=== PATIENT | female | born 1955 | race Caucasian/White ===

== ENCOUNTER 2021-04-22 07:16 | Day surgery (SDC) | payer MEDICARE, BC ==
[2021-04-22] MEDS ORDERED: fentaNYL 100 MCG/2 ML SDV IV ONE (07:17)
[2021-04-22] MEDS ORDERED: Midazolam 1 MG/ML 2 ML SDV IV ONE (07:17)
[2021-04-22] MEDS ORDERED: Lactated Ringers 1,000 ML IV PRN (07:30)
[2021-04-22] MEDS ORDERED: Sodium Chloride 0.9% 10 ML Syringe FLUSH PRN (07:30)
[2021-04-22] MEDS ORDERED: acetaZOLAMIDE 500 MG Cap.ER PO ONE (09:30)
[2021-04-22 12:22] VITALS: BP 141/66; PULSE 74
--- NOTE | 2021-04-23 07:44 | OR ---
DATE OF OPERATION: 04/22/2021 SURGEON: Janis Kaur MD PREOPERATIVE DIAGNOSIS: Visually significant cataract, right eye. POSTOPERATIVE DIAGNOSIS: Visually significant cataract, right eye. PROCEDURES PERFORMED: Phacoemulsification with intraocular lens placement, right eye. ASSISTANTS: None. ANESTHESIA: Local with sedation. COMPLICATIONS: None. BLOOD LOSS: None. IMPLANTS: An Rojas ACU0T0, 16.5 diopter lens, serial number [id number] implanted. CDE: 10.81. DESCRIPTION OF PROCEDURE: After risks and benefits were reviewed with the patient, consent was obtained in the preoperative area, and the operative eye was marked with a surgical pen. In the preoperative area, a pledget was used to dilate the pupil consisting of a mixture of phenylephrine 10%, cyclopentolate 2%, moxifloxacin 0.5%, and bupivacaine 0.75%. The patient was taken to the operating room, where a time-out was performed, and the patient was placed under monitored anesthesia care. Topical tetracaine was used for anesthesia. The operative eye was prepped and draped for ophthalmic surgery, and the microscope was brought into position and focused. A paracentesis incision was made, followed by injection of preservative-free 1% lidocaine into the anterior chamber, followed by injection of Viscoat into the anterior chamber. A microkeratome blade was used to make a corneal limbal incision temporally. A cystotome was used to make the beginning of the capsulorrhexis, which was carried around 360 degrees in a curvilinear fashion using Utrata forceps. A Dunlap cannula with BSS was used to hydrodissect and hydrodelineate the nucleus. The nucleus was removed in a divide and conquer manner using phacoemulsification. Irrigation and aspiration were used to remove the remaining cortical material. Provisc was used to inflate the capsular bag, and a pre-loaded Rojas ACU0T0, 16.5 diopter lens, serial number [id number] was injected into the capsular bag. A Sinskey hook was used to position and center the lens. Next, irrigation and aspiration was used to remove any remaining viscoelastic and cortical material from the anterior chamber. BSS on a cannula was used to inflate the anterior chamber and hydrate the wound. The wound was checked and found to be watertight. 1 mg of Moxifloxacin was injected into the anterior chamber. Drapes were removed and the eye was cleaned. A drop of brimonidine 0.2% and a drop of TobraDex was placed. The eye was shielded, and the patient was taken to the recovery room in stable condition. /[id number] NI/GAMALIEL
== END 2021-04-22 10:30 | disposition home or self-care (01) ==
LOC: FB.SDS 07:16
PROVIDERS: ATTEND Ophthalmology
DX: H25.813 Combined forms of age-related cataract, bilateral (principal); H43.812 Vitreous degeneration, left eye; H35.033 Hypertensive retinopathy, bilateral; H04.123 Dry eye syndrome of bilateral lacrimal glands; I10 Essential (primary) hypertension; Z88.1 Allergy status to other antibiotic agents; Z88.8 Allergy status to other drugs, medicaments and biological substances; Z90.49 Acquired absence of other specified parts of digestive tract; Z98.890 Other specified postprocedural states
CPT/HCPCS: 00142-QZ; A9270-GY; J2250; J3010; J7120; V2632

== ENCOUNTER 2021-05-06 08:34 | Day surgery (SDC) | payer MEDICARE, BC ==
[~2021-05-06 08:34] MED LIST: Lactated Ringers 1,000 ML IV PRN; Sodium Chloride 0.9% 10 ML Syringe FLUSH PRN
[2021-05-06] MEDS ORDERED: fentaNYL 100 MCG/2 ML SDV IV ONE (08:35)
[2021-05-06] MEDS ORDERED: Midazolam 1 MG/ML 2 ML SDV IV ONE (08:35)
[2021-05-06] MEDS ORDERED: acetaZOLAMIDE 500 MG Cap.ER PO ONE (10:00)
[2021-05-06 10:56] VITALS: BP 151/78; PULSE 73
--- NOTE | 2021-05-06 11:36 | OR ---
DATE OF OPERATION: 05/06/2021 SURGEON: Janis Kaur MD PREOPERATIVE DIAGNOSIS: Visually significant cataract, left eye. POSTOPERATIVE DIAGNOSIS: Visually significant cataract, left eye. PROCEDURES PERFORMED: Phacoemulsification with intraocular lens placement, left eye. ASSISTANTS: None. ANESTHESIA: Local with sedation. COMPLICATIONS: None. BLOOD LOSS: None. IMPLANTS: Rojas ACU0T0, 19.5 diopter lens, serial number [id number] implanted. CDE: 3.05. DESCRIPTION OF PROCEDURE: After risks and benefits were reviewed with the patient, consent was obtained in the preoperative area, and the operative eye was marked with a surgical pen. In the preoperative area, a pledget was used to dilate the pupil consisting of a mixture of phenylephrine 10%, cyclopentolate 2%, moxifloxacin 0.5%, and bupivacaine 0.75%. The patient was taken to the operating room, where a time-out was performed, and the patient was placed under monitored anesthesia care. Topical tetracaine was used for anesthesia. The operative eye was prepped and draped for ophthalmic surgery, and the microscope was brought into position and focused. A paracentesis incision was made, followed by injection of preservative-free 1% lidocaine into the anterior chamber, followed by injection of Viscoat into the anterior chamber. A microkeratome blade was used to make a corneal limbal incision temporally. A cystotome was used to make the beginning of the capsulorrhexis, which was carried around 360 degrees in a curvilinear fashion using Utrata forceps. A Dunlap cannula with BSS was used to hydrodissect and hydrodelineate the nucleus. The nucleus was removed in a divide and conquer manner using phacoemulsification. Irrigation and aspiration were used to remove the remaining cortical material. Provisc was used to inflate the capsular bag, and a pre-loaded Rojas ACU0T0, 19.5 diopter lens, serial number [id number] was injected into the capsular bag. A Sinskey hook was used to position and center the lens. Next, irrigation and aspiration was used to remove any remaining viscoelastic and cortical material from the anterior chamber. BSS on a cannula was used to inflate the anterior chamber and hydrate the wound. The wound was checked and found to be watertight. 1 mg of Moxifloxacin was injected into the anterior chamber. Drapes were removed and the eye was cleaned. A drop of brimonidine 0.2% and a drop of TobraDex was placed. The eye was shielded, and the patient was taken to the recovery room in stable condition. /[id number] NI/GAMALIEL
== END 2021-05-06 11:08 | disposition home or self-care (01) ==
LOC: FB.SDS 08:34
PROVIDERS: ATTEND Ophthalmology
DX: H25.813 Combined forms of age-related cataract, bilateral (principal); H43.812 Vitreous degeneration, left eye; H35.033 Hypertensive retinopathy, bilateral; H04.123 Dry eye syndrome of bilateral lacrimal glands; I10 Essential (primary) hypertension; Z88.1 Allergy status to other antibiotic agents; Z88.8 Allergy status to other drugs, medicaments and biological substances; Z79.899 Other long term (current) drug therapy
CPT/HCPCS: 00142-QZ; A9270-GY; J2250; J3010; J7120; V2632

== ENCOUNTER 2022-04-02 10:50 | Inpatient (IN) | payer MEDICARE, BC ==
[2022-04-02] MEDS ORDERED: Polyethylene Glycol 3350 Powder 17 GM Packet PO PRN (12:14)
[2022-04-02] MEDS: Acetaminophen 500 MG Tab PO SCH ×2 (13:02→21:14)
[2022-04-02] MEDS: oxyCODONE 5 MG Tab PO PRN ×4 (13:12→22:20)
[2022-04-02] MEDS: Pantoprazole 40 MG Tab.CR PO SCH (16:17)
[2022-04-02] MEDS: Losartan 25 MG Tab PO SCH (21:14)
[2022-04-03] MEDS: oxyCODONE 5 MG Tab PO PRN ×5 (01:20→21:47)
[2022-04-03] MEDS: Levothyroxine 25 MCG Tab PO SCH (06:09)
[2022-04-03] MEDS: Acetaminophen 500 MG Tab PO SCH ×3 (06:10→21:47)
[2022-04-03] MEDS: Aspirin 81 MG Tab.Chew PO SCH ×2 (08:59→21:46)
[2022-04-03] MEDS: Calcium Carbonate 500 MG Tablet PO SCH (08:59)
[2022-04-03] MEDS: Chlorthalidone 25 MG Tab PO SCH (09:00)
[2022-04-03] MEDS: Losartan 25 MG Tab PO SCH ×2 (09:01→21:46)
[2022-04-03] MEDS: Multivitamin Tab PO SCH (09:05)
[2022-04-03] MEDS: Methocarbamol 500 MG Tab PO PRN (17:56)
[2022-04-04] MEDS: oxyCODONE 5 MG Tab PO PRN ×5 (01:10→22:46)
[2022-04-04] MEDS: Methocarbamol 500 MG Tab PO PRN ×2 (02:40→08:46)
[2022-04-04] MEDS: Levothyroxine 25 MCG Tab PO SCH (05:30)
[2022-04-04] MEDS: Acetaminophen 500 MG Tab PO SCH ×3 (05:30→21:04)
[2022-04-04] MEDS: Calcium Carbonate 500 MG Tablet PO SCH (08:42)
[2022-04-04] MEDS: Chlorthalidone 25 MG Tab PO SCH (08:42)
[2022-04-04] MEDS: Aspirin 81 MG Tab.Chew PO SCH ×2 (08:42→21:04)
[2022-04-04] MEDS: Multivitamin Tab PO SCH (08:43)
[2022-04-04] MEDS: Losartan 25 MG Tab PO SCH ×2 (08:43→21:04)
[2022-04-05] MEDS: oxyCODONE 5 MG Tab PO PRN ×4 (04:03→20:59)
[2022-04-05] MEDS: Levothyroxine 25 MCG Tab PO SCH (05:25)
[2022-04-05] MEDS: Acetaminophen 500 MG Tab PO SCH ×3 (06:34→21:01)
[2022-04-05] MEDS: Chlorthalidone 25 MG Tab PO SCH (08:14)
[2022-04-05] MEDS: Losartan 25 MG Tab PO SCH ×2 (08:14→20:45)
[2022-04-05] MEDS: Calcium Carbonate 500 MG Tablet PO SCH (08:14)
[2022-04-05] MEDS: Aspirin 81 MG Tab.Chew PO SCH ×2 (08:14→20:45)
[2022-04-05] MEDS: Multivitamin Tab PO SCH (08:15)
[2022-04-05] MEDS: Meloxicam 7.5 MG Tab PO SCH (08:24)
[2022-04-05] MEDS: Pantoprazole 40 MG Tab.CR PO SCH (18:59)
[2022-04-05] MEDS: Methocarbamol 500 MG Tab PO PRN (23:40)
[2022-04-06] MEDS: oxyCODONE 5 MG Tab PO PRN ×5 (01:43→21:47)
[2022-04-06] MEDS: Levothyroxine 25 MCG Tab PO SCH (05:44)
[2022-04-06] MEDS: Acetaminophen 500 MG Tab PO SCH ×3 (05:44→21:41)
[2022-04-06] MEDS: Methocarbamol 500 MG Tab PO PRN ×2 (06:00→12:14)
[2022-04-06] MEDS: Chlorthalidone 25 MG Tab PO SCH (08:48)
[2022-04-06] MEDS: Aspirin 81 MG Tab.Chew PO SCH ×2 (08:48→21:40)
[2022-04-06] MEDS: Calcium Carbonate 500 MG Tablet PO SCH (08:48)
[2022-04-06] MEDS: Multivitamin Tab PO SCH (08:49)
[2022-04-06] MEDS: Meloxicam 7.5 MG Tab PO SCH (08:51)
[2022-04-06] MEDS: Losartan 25 MG Tab PO SCH ×2 (09:01→21:43)
[2022-04-07] MEDS: oxyCODONE 5 MG Tab PO PRN ×4 (01:30→18:21)
[2022-04-07] MEDS: Levothyroxine 25 MCG Tab PO SCH (05:58)
[2022-04-07] MEDS: Acetaminophen 500 MG Tab PO SCH ×3 (05:59→21:35)
[2022-04-07] MEDS: Calcium Carbonate 500 MG Tablet PO SCH (08:17)
[2022-04-07] MEDS: Chlorthalidone 25 MG Tab PO SCH (08:18)
[2022-04-07] MEDS: Aspirin 81 MG Tab.Chew PO SCH ×2 (08:18→21:35)
[2022-04-07] MEDS: Losartan 25 MG Tab PO SCH ×2 (08:19→21:35)
[2022-04-07] MEDS: Meloxicam 7.5 MG Tab PO SCH (08:20)
[2022-04-07] MEDS: Multivitamin Tab PO SCH (08:20)
[2022-04-08] MEDS: oxyCODONE 5 MG Tab PO PRN ×4 (00:24→20:58)
[2022-04-08] MEDS: Acetaminophen 500 MG Tab PO SCH ×3 (06:53→21:09)
[2022-04-08] MEDS: Levothyroxine 25 MCG Tab PO SCH (06:53)
[2022-04-08] MEDS: Calcium Carbonate 500 MG Tablet PO SCH (09:10)
[2022-04-08] MEDS: Multivitamin Tab PO SCH (09:10)
[2022-04-08] MEDS: Aspirin 81 MG Tab.Chew PO SCH ×2 (09:10→21:07)
[2022-04-08] MEDS: Losartan 25 MG Tab PO SCH ×2 (09:11→21:02)
[2022-04-08] MEDS: Meloxicam 7.5 MG Tab PO SCH (09:13)
[2022-04-08] MEDS: Chlorthalidone 25 MG Tab PO SCH (14:23)
[2022-04-08] MEDS: Pantoprazole 40 MG Tab.CR PO SCH (16:06)
[2022-04-09] MEDS: Methocarbamol 500 MG Tab PO PRN ×2 (02:55→09:26)
[2022-04-09] MEDS: Levothyroxine 25 MCG Tab PO SCH (05:18)
[2022-04-09] MEDS: Acetaminophen 500 MG Tab PO SCH ×4 (05:20→21:50)
[2022-04-09] MEDS: oxyCODONE 5 MG Tab PO PRN ×3 (05:21→21:56)
[2022-04-09] MEDS: Aspirin 81 MG Tab.Chew PO SCH ×2 (09:26→21:45)
[2022-04-09] MEDS: Chlorthalidone 25 MG Tab PO SCH (09:27)
[2022-04-09] MEDS: Losartan 25 MG Tab PO SCH ×2 (09:27→21:52)
[2022-04-09] MEDS: Calcium Carbonate 500 MG Tablet PO SCH (09:32)
[2022-04-09] MEDS: Meloxicam 7.5 MG Tab PO SCH (11:00)
[2022-04-09] MEDS: Multivitamin Tab PO SCH (11:01)
[2022-04-09] MEDS ORDERED: Methocarbamol 500 MG Tab PO ONE (16:30)
[2022-04-09] MEDS: Methocarbamol 500 MG Tab PO SCH (21:52)
[2022-04-10] MEDS: oxyCODONE 5 MG Tab PO PRN (05:07)
[2022-04-10] MEDS: Acetaminophen 500 MG Tab PO SCH ×3 (05:08→22:49)
[2022-04-10] MEDS: Methocarbamol 500 MG Tab PO SCH ×3 (05:08→22:50)
[2022-04-10] MEDS: Levothyroxine 25 MCG Tab PO SCH (05:09)
[2022-04-10] MEDS: Aspirin 81 MG Tab.Chew PO SCH ×2 (08:21→20:05)
[2022-04-10] MEDS: Calcium Carbonate 500 MG Tablet PO SCH (08:21)
[2022-04-10] MEDS: Chlorthalidone 25 MG Tab PO SCH (08:22)
[2022-04-10] MEDS: Meloxicam 7.5 MG Tab PO SCH (08:24)
[2022-04-10] MEDS: Multivitamin Tab PO SCH (08:24)
[2022-04-10] MEDS: Losartan 25 MG Tab PO SCH ×2 (08:47→20:01)
[2022-04-11] MEDS: oxyCODONE 5 MG Tab PO PRN ×2 (01:47→15:27)
[2022-04-11] MEDS: Methocarbamol 500 MG Tab PO SCH ×2 (05:14→13:14)
[2022-04-11] MEDS: Levothyroxine 25 MCG Tab PO SCH (05:14)
[2022-04-11] MEDS: Acetaminophen 500 MG Tab PO SCH ×2 (05:15→13:14)
[2022-04-11 06:53] VITALS: BP 186/84; PULSE 80
[2022-04-11] MEDS: Chlorthalidone 25 MG Tab PO SCH (09:05)
[2022-04-11] MEDS: Calcium Carbonate 500 MG Tablet PO SCH (09:05)
[2022-04-11] MEDS: Aspirin 81 MG Tab.Chew PO SCH (09:05)
[2022-04-11] MEDS: Losartan 25 MG Tab PO SCH (09:07)
[2022-04-11] MEDS: Meloxicam 7.5 MG Tab PO SCH (09:08)
[2022-04-11] MEDS: Multivitamin Tab PO SCH (09:09)
[2022-04-11] MEDS ORDERED: Methocarbamol 500 MG Tab PO ONE (19:29)
== END 2022-04-11 19:30 | disposition home or self-care (01) | DRG 560 ==
LOC: FB.MS 11:34 → UNDOADMIN 11:34 → FB.MS 12:11
PROVIDERS: ADMIT Family Medicine; ATTEND Student in an Organized Health Care Education/Training Program
DX: Z47.1 Aftercare following joint replacement surgery (principal); Z68.42 Body mass index [BMI] 45.0-49.9, adult; I87.2 Venous insufficiency (chronic) (peripheral); K21.9 Gastro-esophageal reflux disease without esophagitis; I10 Essential (primary) hypertension; Z96.651 Presence of right artificial knee joint; I89.0 Lymphedema, not elsewhere classified; E03.9 Hypothyroidism, unspecified; G47.00 Insomnia, unspecified; E66.01 Morbid (severe) obesity due to excess calories; E78.5 Hyperlipidemia, unspecified; Z79.82 Long term (current) use of aspirin; Z79.899 Other long term (current) drug therapy; Z88.1 Allergy status to other antibiotic agents; Z88.8 Allergy status to other drugs, medicaments and biological substances; Z90.49 Acquired absence of other specified parts of digestive tract; Z98.49 Cataract extraction status, unspecified eye
CPT/HCPCS: 97110-GP; 97116-GP; 97140-GP; 97161-GP; 97166-GO; 97530-GO; 97530-GP; 97535-GO; A9270-GY

== ENCOUNTER 2022-06-04 09:23 | Inpatient (IN) | payer MEDICARE, BC ==
[2022-06-04] MEDS ORDERED: Bisacodyl 5 MG Tab PO PRN (11:30)
[2022-06-04] MEDS: oxyCODONE 5 MG Tab PO PRN ×3 (13:13→22:37)
[2022-06-04] MEDS: Acetaminophen 500 MG Tab PO SCH ×2 (14:34→22:14)
[2022-06-04] MEDS: Losartan 25 MG Tab PO SCH (22:13)
[2022-06-05] MEDS: oxyCODONE 5 MG Tab PO PRN ×6 (03:00→20:53)
[2022-06-05] MEDS: Methocarbamol 500 MG Tab PO PRN ×4 (03:00→23:15)
[2022-06-05] MEDS: Acetaminophen 500 MG Tab PO SCH ×3 (06:04→21:00)
[2022-06-05] MEDS: Pantoprazole 40 MG Tab.CR PO SCH (06:04)
[2022-06-05] MEDS: Levothyroxine 25 MCG Tab PO SCH (06:05)
[2022-06-05] MEDS: Losartan 25 MG Tab PO SCH ×2 (08:46→20:57)
[2022-06-05] MEDS: Aspirin 81 MG Tab.Chew PO SCH ×2 (08:46→20:58)
[2022-06-05] MEDS: Calcium Carbonate 500 MG Tablet PO SCH (08:46)
[2022-06-05] MEDS: Multivitamin Tab PO SCH (08:46)
[2022-06-05] MEDS: Meloxicam 7.5 MG Tab PO SCH (08:49)
[2022-06-06] MEDS: oxyCODONE 5 MG Tab PO PRN ×7 (00:02→23:01)
[2022-06-06] MEDS: Acetaminophen 500 MG Tab PO SCH ×3 (05:49→21:01)
[2022-06-06] MEDS: Levothyroxine 25 MCG Tab PO SCH (05:50)
[2022-06-06] MEDS: Methocarbamol 500 MG Tab PO PRN ×3 (05:51→19:45)
[2022-06-06] MEDS: Meloxicam 7.5 MG Tab PO SCH (08:41)
[2022-06-06] MEDS: Multivitamin Tab PO SCH (08:42)
[2022-06-06] MEDS: Losartan 25 MG Tab PO SCH ×2 (08:42→21:01)
[2022-06-06] MEDS: Calcium Carbonate 500 MG Tablet PO SCH (08:42)
[2022-06-06] MEDS: Aspirin 81 MG Tab.Chew PO SCH ×2 (08:42→21:01)
[2022-06-06] MEDS ORDERED: Ketorolac 15 MG/ML SDV IM PRN (09:06)
[2022-06-06 09:45] LABS: ESTIMATED GFR 80 mL/min (>60)
[2022-06-07] MEDS: Methocarbamol 500 MG Tab PO PRN ×4 (02:04→21:06)
[2022-06-07] MEDS: oxyCODONE 5 MG Tab PO PRN ×5 (02:05→21:05)
[2022-06-07] MEDS: Acetaminophen 500 MG Tab PO SCH ×3 (05:08→21:02)
[2022-06-07] MEDS: Levothyroxine 25 MCG Tab PO SCH (05:08)
[2022-06-07] MEDS: Meloxicam 7.5 MG Tab PO SCH (08:12)
[2022-06-07] MEDS: Calcium Carbonate 500 MG Tablet PO SCH (08:12)
[2022-06-07] MEDS: Aspirin 81 MG Tab.Chew PO SCH ×2 (08:12→21:04)
[2022-06-07] MEDS: Multivitamin Tab PO SCH (08:12)
[2022-06-07] MEDS: Losartan 25 MG Tab PO SCH ×2 (08:12→21:04)
[2022-06-08] MEDS: oxyCODONE 5 MG Tab PO PRN ×6 (00:30→21:45)
[2022-06-08] MEDS: Methocarbamol 500 MG Tab PO PRN ×3 (03:33→21:45)
[2022-06-08] MEDS: Acetaminophen 500 MG Tab PO SCH ×3 (06:03→21:45)
[2022-06-08] MEDS: Pantoprazole 40 MG Tab.CR PO SCH (06:04)
[2022-06-08] MEDS: Levothyroxine 25 MCG Tab PO SCH (06:06)
[2022-06-08] MEDS: Multivitamin Tab PO SCH (09:12)
[2022-06-08] MEDS: Calcium Carbonate 500 MG Tablet PO SCH (09:12)
[2022-06-08] MEDS: Aspirin 81 MG Tab.Chew PO SCH ×2 (09:12→21:45)
[2022-06-08] MEDS: Losartan 25 MG Tab PO SCH ×2 (09:13→21:46)
[2022-06-08] MEDS: Meloxicam 7.5 MG Tab PO SCH (09:18)
[2022-06-09] MEDS: oxyCODONE 5 MG Tab PO PRN ×5 (01:47→22:06)
[2022-06-09] MEDS: Methocarbamol 500 MG Tab PO PRN ×3 (04:47→22:26)
[2022-06-09] MEDS: Levothyroxine 25 MCG Tab PO SCH (05:01)
[2022-06-09] MEDS: Acetaminophen 500 MG Tab PO SCH ×3 (05:01→22:15)
[2022-06-09] MEDS: Calcium Carbonate 500 MG Tablet PO SCH (08:21)
[2022-06-09] MEDS: Aspirin 81 MG Tab.Chew PO SCH ×2 (08:22→22:08)
[2022-06-09] MEDS: Losartan 25 MG Tab PO SCH ×2 (08:23→22:26)
[2022-06-09] MEDS: Multivitamin Tab PO SCH (08:23)
[2022-06-09] MEDS: Meloxicam 7.5 MG Tab PO SCH (08:23)
[2022-06-09] MEDS ORDERED: Losartan 50 MG Tab ONE (22:13)
[2022-06-10] MEDS: oxyCODONE 5 MG Tab PO PRN ×7 (02:10→22:05)
[2022-06-10] MEDS: Methocarbamol 500 MG Tab PO PRN ×3 (05:11→18:21)
[2022-06-10] MEDS: Levothyroxine 25 MCG Tab PO SCH (05:11)
[2022-06-10] MEDS: Acetaminophen 500 MG Tab PO SCH ×3 (05:11→22:07)
[2022-06-10] MEDS: Aspirin 81 MG Tab.Chew PO SCH ×2 (08:37→22:04)
[2022-06-10] MEDS: Calcium Carbonate 500 MG Tablet PO SCH (08:37)
[2022-06-10] MEDS: Meloxicam 7.5 MG Tab PO SCH (08:37)
[2022-06-10] MEDS: Multivitamin Tab PO SCH (08:38)
[2022-06-10] MEDS: Losartan 25 MG Tab PO SCH ×2 (08:40→22:05)
[2022-06-11] MEDS: oxyCODONE 5 MG Tab PO PRN ×7 (01:13→23:09)
[2022-06-11] MEDS: Levothyroxine 25 MCG Tab PO SCH (04:59)
[2022-06-11] MEDS: Acetaminophen 500 MG Tab PO SCH ×3 (04:59→21:30)
[2022-06-11] MEDS: Pantoprazole 40 MG Tab.CR PO SCH (04:59)
[2022-06-11] MEDS: Calcium Carbonate 500 MG Tablet PO SCH (08:43)
[2022-06-11] MEDS: Losartan 25 MG Tab PO SCH ×2 (08:43→20:13)
[2022-06-11] MEDS: Aspirin 81 MG Tab.Chew PO SCH ×2 (08:43→20:14)
[2022-06-11] MEDS: Multivitamin Tab PO SCH (08:44)
[2022-06-11] MEDS: Meloxicam 7.5 MG Tab PO SCH (08:44)
[2022-06-11] MEDS: Methocarbamol 500 MG Tab PO PRN ×2 (12:14→20:07)
[2022-06-12] MEDS: oxyCODONE 5 MG Tab PO PRN ×6 (02:09→20:09)
[2022-06-12] MEDS: Acetaminophen 500 MG Tab PO SCH ×3 (05:31→21:45)
[2022-06-12] MEDS: Levothyroxine 25 MCG Tab PO SCH (05:32)
[2022-06-12] MEDS: Multivitamin Tab PO SCH (09:05)
[2022-06-12] MEDS: Calcium Carbonate 500 MG Tablet PO SCH (09:05)
[2022-06-12] MEDS: Aspirin 81 MG Tab.Chew PO SCH ×2 (09:05→20:08)
[2022-06-12] MEDS: Meloxicam 7.5 MG Tab PO SCH (09:06)
[2022-06-12] MEDS: Losartan 25 MG Tab PO SCH ×2 (09:07→20:08)
[2022-06-13] MEDS: oxyCODONE 5 MG Tab PO PRN ×3 (03:05→09:09)
[2022-06-13] MEDS: Acetaminophen 500 MG Tab PO SCH (06:20)
[2022-06-13] MEDS: Levothyroxine 25 MCG Tab PO SCH (06:20)
[2022-06-13 07:19] VITALS: BP 128/53; PULSE 74
[2022-06-13] MEDS: Meloxicam 7.5 MG Tab PO SCH (09:17)
[2022-06-13] MEDS: Multivitamin Tab PO SCH (09:17)
[2022-06-13] MEDS: Aspirin 81 MG Tab.Chew PO SCH (09:17)
[2022-06-13] MEDS: Calcium Carbonate 500 MG Tablet PO SCH (09:20)
[2022-06-13] MEDS: Losartan 25 MG Tab PO SCH (09:20)
== END 2022-06-13 11:15 | disposition home or self-care (01) | DRG 560 ==
LOC: FB.MS 11:08
PROVIDERS: ADMIT Family Medicine; ATTEND Family Medicine
DX: Z47.1 Aftercare following joint replacement surgery (principal); Z68.42 Body mass index [BMI] 45.0-49.9, adult; Z96.652 Presence of left artificial knee joint; K21.9 Gastro-esophageal reflux disease without esophagitis; E66.9 Obesity, unspecified; I10 Essential (primary) hypertension; H54.7 Unspecified visual loss; D50.0 Iron deficiency anemia secondary to blood loss (chronic); I89.0 Lymphedema, not elsewhere classified; E03.9 Hypothyroidism, unspecified; M62.838 Other muscle spasm; M54.50 Low back pain, unspecified; Z88.1 Allergy status to other antibiotic agents; Z88.7 Allergy status to serum and vaccine; Z79.890 Hormone replacement therapy
CPT/HCPCS: 36415; 80048; 83735; 85025; 97110-GP; 97116-GP; 97140-GP; 97161-GP; 97166-GO; 97530-GO; 97535-GO; A9270-GY

== ENCOUNTER 2024-12-11 14:30 | Emergency (ER) | payer MEDICARE, BC ==
[2024-12-11 15:22] LABS: BASOPHILS ABSOLUTE AUTO 0.1 x10-3/uL (0.0-0.1); EOSINOPHILS ABSOLUTE AUTO 0.3 x10-3/uL (0.0-0.8); LYMPHOCYTES ABSOLUTE AUTO 1.7 x10-3/uL (1.0-4.4); MEAN PLATELET VOLUME 6.3 fL (7.1-12.4); RED BLOOD CELL COUNT 3.23 x10(6)uL (3.60-5.20); RED CELL DISTRIBUTION WIDTH 13.2 % (12.3-16.5)
[2024-12-11 15:23] LABS: BLOOD UREA NITROGEN,BUN 12 mg/dL (7-18); CALCIUM 9.7 mg/dL (8.6-10.2); CARBON DIOXIDE,CO2 29 mmol/L (21-32); CHLORIDE,CL 97 mmol/L (100-110); CREATININE 0.8 mg/dL (0.55-1.02); EOSINOPHILS PERCENT AUTO 2.6 % (0.6-8.1); ESTIMATED GFR 79 mL/min (>60); GLUCOSE RANDOM 121 mg/dL (80-116); HEMOGLOBIN 9.8 g/dL (11.4-15.5); LYMPHOCYTES PERCENT AUTO 15.7 % (18.4-52.1); MEAN CORPUSCULAR HEMOGLOBIN 30.5 pg (23.9-33.9); MEAN CORPUSCULAR HGB CONC 35.2 g/dL (31.9-34.8); MEAN CORPUSCULAR VOLUME 86.8 fL (76.7-100.5); MONOCYTES PERCENT AUTO 8.7 % (4.4-15.7); PLATELET COUNT,PLT 378 x10(3)uL (151-488); POTASSIUM,K 3.9 mmol/L (3.5-5.3); SODIUM,NA 135 mmol/L (135-145); WHITE BLOOD CELL COUNT,WBC 12.5 x10-3/uL (3.0-10.3)
[2024-12-11 15:29] LABS: CREATINE KINASE,CK 52 IU/L (60-160)
[2024-12-11] MEDS: Ketorolac 30 MG/ML SDV IM ONE (15:36)
[2024-12-11 19:38] VITALS: BP 135/58; PULSE 86
== END 2024-12-11 17:05 | disposition home or self-care (01) ==
LOC: FB.ED 14:30
DX: M62.838 Other muscle spasm (principal); I10 Essential (primary) hypertension; K21.9 Gastro-esophageal reflux disease without esophagitis; E66.9 Obesity, unspecified; Z96.641 Presence of right artificial hip joint; Z90.49 Acquired absence of other specified parts of digestive tract; Z79.899 Other long term (current) drug therapy; Z79.890 Hormone replacement therapy; Z88.0 Allergy status to penicillin; Z88.1 Allergy status to other antibiotic agents; Z88.7 Allergy status to serum and vaccine
CPT/HCPCS: 36415; 80048; 82550; 85025; 96372; 99284; J1885

== ENCOUNTER 2025-10-21 19:44 | Emergency (ER) | payer MEDICARE, BC ==
[2025-10-21 20:24] VITALS: BP 155/69; PULSE 95
== END 2025-10-21 21:45 | disposition home or self-care (01) ==
LOC: FB.ED 19:44
DX: S30.0XXA Contusion of lower back and pelvis, initial encounter (principal); S32.592D Other specified fracture of left pubis, subsequent encounter for fracture with routine healing; R60.0 Localized edema; I10 Essential (primary) hypertension; K21.9 Gastro-esophageal reflux disease without esophagitis; E66.9 Obesity, unspecified; Z90.49 Acquired absence of other specified parts of digestive tract; Z90.710 Acquired absence of both cervix and uterus; Z79.899 Other long term (current) drug therapy; Z79.82 Long term (current) use of aspirin; Z88.0 Allergy status to penicillin; Z88.8 Allergy status to other drugs, medicaments and biological substances; Z88.1 Allergy status to other antibiotic agents; W01.198A Fall on same level from slipping, tripping and stumbling with subsequent striking against other object, initial encounter; Y93.01 Activity, walking, marching and hiking
CPT/HCPCS: 73521; 99283